=== PATIENT | female | born 1950 | race Two or more races ===

== ENCOUNTER 2024-10-08 08:51 | Outpatient (AMB) | payer MEDICARE, MEDICAID, SELFPAY ==
--- NOTE | 2024-10-08 09:04 | PD.ORTHCLVIS ---
Vital signs 10/08/24 09:08 Height 1.55 m Height Method Stated Weight 56.869 kg Weight Measurement Method Standing Scale BMI 23.6 BP 118/75 Blood Pressure Source Automatic Cuff Blood Pressure Location Right Upper Arm Position Sitting Respiration 18 Pulse 57 L Pulse Source Monitor Temp Source Temporal Artery Scan Pulse Oximetry (%) 98 Oxygen Delivery Method Room Air Med/Allergies Allergies & Medications Allergies No Known Allergies Allergy (Verified 10/08/24 09:10) Medication Reconciliation tramadol 50 mg tablet 50 mg PO QDAY 10/08/24 [History Confirmed 10/08/24] Subjective Visit Visit for: follow up visit Immunization / Flu Flu Vaccine in the Last 12 Months: Yes Date of most recent flu vaccination: 09/22/24 Flu Vaccine Exclusion Criteria: Already Received History of Present Illness Chief complaint: FOLLOW UP KNEE PAIN Natividad is a 73-year-old female with right knee pain that has been bothering her for quite a while. She is previously had a cortisone injections with me. The pain is affecting her quality life and happiness. She has severe arthritis on x-ray Personal History Red flag PMH: smoker Pain Pain level (0-10): 6 Pain duration: ALL DAY Pain location: inside (medial), outside (lateral), anterior and posterior Pain quality: shocking and other (specify) (SWELLING) Pain timing: night Associated signs & symptoms: weakness Ambulatory data Ambulatory device: none Treatments Improvement with previous injections: No Improvement with PT: No Improvement with NSAIDS: n/a Review of Systems Review of Systems: All systems negative unless otherwise noted in HPI. Exam Exam Patient is in no acute distress and is cooperative with the examination today. Breathing is nonlabored. Patient has a normal mood and affect. Bilateral extremities were evaluated and demonstrates sensation intact to light touch. Palpable pedal pulses are present. No significant edema is present. Bilateral hips were examined. The patient has no pain with log roll of the hips. Internal rotation to 30 degrees and external rotation to 30 degrees is painless. Negative FADIR. Left knee was examined today. The left knee is in reasonable alignment. Range of motion from 0-120 degrees. Knee is stable to varus and valgus as well as AP translation with <5mm. Patient has a negative McMurrays. There is no pain with patellofemoral compression and no crepitus noted. The knee is nontender to palpation. The right knee was also examined. The right knee is in [varus] alignment. Range of motion from [0-115] degrees. Knee is stable to varus and valgus as well as AP translation with <5mm. Patient has a [negative] McMurrays. There is [no] pain with patellofemoral compression and [no] crepitus noted. The knee is [tender] to palpation [medially]. Assessment and Plan Problem List (1) Arthritis of knee, right: Status: Acute Plan: Patient is a 74-year-old female with right knee pain and right knee arthritis. We discussed nonoperative and operative options. She would like a hyaluronic acid injection of the right knee. She is try gel injections. We will see her back after we get approval from her insurance. Advanced Care Planning Discussion Advance care planning discussed with:: patient Office Procedures GNS Level of Care Nursing/Assessment Patient Status: Established Patient Nursing Assessment/Reassesment: Medication Reconciliation, Update PMH in EMR and Vital Signs Coordination of Care: Complex Care and Chronic Disease 1-5, Education Complex Pt/Fam, Consent,records obtained, informed consent, Results/Orders obtained and Staff clarify orders Established Patient Charge Established Patient Point Assignment: 95 Established Patient Point Charge: EP Level 3 (80-115) Past Medical History Past Medical History Have you ever been diagnosed with any of the following: Cardiology Problems Hypertension: Yes Respiratory Problems Smoking: Yes Smoking Cessation Counseling: Yes Smoking Exposure: Yes Endocrine Problems Diabetes Mellitus Type 2: Yes
[2024-10-08 09:08] VITALS: BP 118/75; PULSE 57; RESP 18; O2SAT 98; BMI 23.6
== END 2024-10-08 09:54 | disposition home or self-care (01) ==
PROVIDERS: Supervising Provider Orthopaedic Surgery Adult Reconstructive Orthopaedic Surgery; Visit Provider Orthopaedic Surgery Adult Reconstructive Orthopaedic Surgery
DX: M17.11 Unilateral primary osteoarthritis, right knee (principal); M25.561 Pain in right knee; I10 Essential (primary) hypertension; E11.9 Type 2 diabetes mellitus without complications
CPT/HCPCS: 99213; G0463

== ENCOUNTER 2024-10-25 08:07 | Outpatient (AMB) | payer MEDICARE, MEDICAID, SELFPAY ==
[2024-10-25 08:17] VITALS: BP 123/72; PULSE 57; RESP 19; TEMP 35.8; O2SAT 100; BMI 23.6
--- NOTE | 2024-10-25 08:17 | ORTHONT_ITS ---
Vital signs 10/25/24 08:17 Height 1.55 m Height Method Stated Weight 56.897 kg Weight Measurement Method Standing Scale BMI 23.6 BP 123/72 Blood Pressure Source Automatic Cuff Blood Pressure Location Left Upper Arm Position Sitting Respiration 19 Pulse 57 L Pulse Source Monitor Temp 96.5 F L Temp Source Temporal Artery Scan Pulse Oximetry (%) 100 Oxygen Delivery Method Room Air Med/Allergies Allergies & Medications Allergies No Known Allergies Allergy (Verified 10/25/24 08:17) Medication Reconciliation tramadol 50 mg tablet 50 mg PO QDAY 10/08/24 [History Confirmed 10/25/24] hylan g-f 20 48 mg/6 mL intra-articular syringe ([email or web address]) 16 mg (2 mL) intra-articular QWEEK #6 mL 10/25/24 [Rx] Exam Exam Patient is in no acute distress and is cooperative with the examination today. Breathing is nonlabored. Patient has a normal mood and affect. Bilateral extremities were evaluated and demonstrates sensation intact to light touch. Palpable pedal pulses are present. No significant edema is present. Bilateral hips were examined. The patient has no pain with log roll of the hips. Internal rotation to 30 degrees and external rotation to 30 degrees is painless. Negative FADIR. Left knee was examined today. The left knee is in reasonable alignment. Range of motion from 0-120 degrees. Knee is stable to varus and valgus as well as AP translation with <5mm. Patient has a negative McMurrays. There is no pain with patellofemoral compression and no crepitus noted. The knee is nontender to palpation. The right knee was also examined. The right knee is in [varus] alignment. Range of motion from [0-115] degrees. Knee is stable to varus and valgus as well as AP translation with <5mm. Patient has a [negative] McMurrays. There is [no] pain with patellofemoral compression and [no] crepitus noted. The knee is [tender] to palpation [medially]. X-rays from [place] [facility] were reviewed. This demonstrates severe valgus arthritis Assessment and Plan Problem List (1) Arthritis of knee, right: Status: Acute Plan: Patient is a 74-year-old female with right knee pain and right knee arthritis. We discussed nonoperative and operative options. She would like a hyaluronic acid injection of the right knee. We discussed the risk of infection with a chronic injection. An 18-gauge syringe was used and the entire syringe of hyaluronic acid Synvisc 1 was injected into the knee after an alcohol prep. The patient tolerated this well. Advanced Care Planning Discussion Advance care planning discussed with:: patient Office Procedures GNS Level of Care Nursing/Assessment Patient Status: Established Patient Nursing Assessment/Reassesment: Medication Reconciliation, Update PMH in EMR and Vital Signs Coordination of Care: Complex Care and Chronic Disease 1-5, Education Complex Pt/Fam, Consent,records obtained, informed consent, Results/Orders obtained and Staff clarify orders Established Patient Charge Established Patient Point Assignment: 95 Established Patient Point Charge: EP Level 3 (80-115) Surgical Proc/IM SQ injection Major Surgical Procedure: Yes (KNEE INJECTION) Medication Given Medication Given Medication Given: Yes Documented Dose Given: 6 Route: Infiitration Office Meds Hyalgan 10 mg/mL intra-articular syringe Performing Provider: Tito Strickland MD Performing Location: [facility] Administered by: Tito Strickland MD on 10/25/24 08:47 Dose Route Admin Location Dispensed Lot Number Expiration Date [facility] Shuttle Driver 20 mg Infiltration 2 mL [id number] 03/28/27 [address]-1 [place] Intake Visit Data Collection New Patient or Established: Established Patient (seen at [facility] within 3 years) Reason for Visit:: 2 week follow up Seen by Clinical Staff ONLY (RN/MA): No Proof Passer Required: No PCP or OBGYN visit in last 3 months: Yes Hx Now: No Do You Feel Safe at Home: Yes Authorities Contacted: N/A Questionairres Past Medical History Past Medical History Have you ever been diagnosed with any of the following: Cardiology Problems Hypertension: Yes Respiratory Problems Smoking: Yes Smoking Cessation Counseling: Yes Smoking Exposure: Yes Endocrine Problems Diabetes Mellitus Type 2: Yes Subjective Visit Visit for: follow up visit and knee Immunization / Flu Flu Vaccine in the Last 12 Months: Yes Flu Vaccine Exclusion Criteria: Already Received History of Present Illness Chief complaint: Right knee pain Natividad is a 74-year-old female with right knee pain and right knee arthritis. She is tried conservative treatment and did well with a cortisone injection. She would like a hyaluronic acid injection today. Pain Pain level (0-10): 6 Pain duration: constant Pain location: inside (medial) and outside (lateral) Pain quality: sharp, aching and other (specify) (swelling) Pain timing: increases with activity Associated signs & symptoms: weakness Ambulatory data Ambulatory device: none Treatments Improvement with previous injections: No Improvement with PT: No Improvement with NSAIDS: no Review of Systems Review of Systems: All systems negative unless otherwise noted in HPI.
== END 2024-10-25 08:56 | disposition home or self-care (01) ==
PROVIDERS: Supervising Provider Orthopaedic Surgery Adult Reconstructive Orthopaedic Surgery; Visit Provider Orthopaedic Surgery Adult Reconstructive Orthopaedic Surgery
DX: M17.11 Unilateral primary osteoarthritis, right knee (principal); M25.561 Pain in right knee; I10 Essential (primary) hypertension
CPT/HCPCS: 20610; 99213; G0463; J7325

== ENCOUNTER 2024-12-12 09:37 | Outpatient (AMB) | payer MEDICARE, MEDICAID, SELFPAY ==
[2024-12-12 10:07] VITALS: BP 122/56; PULSE 55; RESP 18; TEMP 36.6; O2SAT 97; BMI 23.8
--- NOTE | 2024-12-12 10:07 | PD.ORTHCLVIS ---
Vital signs 12/12/24 10:07 Height 1.55 m Height Method Stated Weight 57.266 kg Weight Measurement Method Standing Scale BMI 23.8 BP 122/56 L Blood Pressure Source Automatic Cuff Blood Pressure Location Right Upper Arm Position Sitting Respiration 18 Pulse 55 L Pulse Source Monitor Temp 97.8 F Temp Source Temporal Artery Scan Pulse Oximetry (%) 97 Oxygen Delivery Method Room Air Med/Allergies Allergies & Medications Allergies No Known Allergies Allergy (Verified 10/25/24 08:17) Medication Reconciliation tramadol 50 mg tablet 50 mg PO QDAY 10/08/24 [History Confirmed 12/12/24] hylan g-f 20 48 mg/6 mL intra-articular syringe ([employer]) 16 mg (2 mL) intra-articular QWEEK #6 mL 10/25/24 [Rx Confirmed 12/12/24] Exam Exam Patient is in no acute distress and is cooperative with the examination today. Breathing is nonlabored. Patient has a normal mood and affect. Bilateral extremities were evaluated and demonstrates sensation intact to light touch. Palpable pedal pulses are present. No significant edema is present. Bilateral hips were examined. The patient has no pain with log roll of the hips. Internal rotation to 30 degrees and external rotation to 30 degrees is painless. Negative FADIR. Left knee was examined today. The left knee is in reasonable alignment. Range of motion from 0-120 degrees. Knee is stable to varus and valgus as well as AP translation with <5mm. Patient has a negative McMurrays. There is no pain with patellofemoral compression and no crepitus noted. The knee is nontender to palpation. The right knee was also examined. The right knee is in [varus] alignment. Range of motion from [0-115] degrees. Knee is stable to varus and valgus as well as AP translation with <5mm. Patient has a [negative] McMurrays. There is [no] pain with patellofemoral compression and [no] crepitus noted. The knee is [tender] to palpation [medially]. X-rays from [place] [facility] were reviewed. This demonstrates severe valgus arthritis Assessment and Plan Problem List (1) Arthritis of knee, right: Status: Acute Plan: Patient is a 74-year-old female with right knee pain and right knee arthritis. We discussed nonoperative and operative options. She has not had a right knee cortisone injection for over 3 months otherwise once a day Recommend knee cortisone injection as patient would like to proceed with conservative treatment at this time. The risks and benefits of the procedure were reviewed with the patient and patient gave verbal consent to continue with the procedure. Procedure: performed by Dr. Strickland Using sterile technique the Right knee was thoroughly prepped with alcohol, and approximately 1 cc of Kenalog 40 mg/mL and 4 cc of 1% lidocaine was injected without resistance into the medial tibial femoral joint space. The patient tolerated the procedure. Advanced Care Planning Discussion Advance care planning discussed with:: patient Office Procedures GNS Level of Care Nursing/Assessment Patient Status: Established Patient Nursing Assessment/Reassesment: Medication Reconciliation, Update PMH in EMR and Vital Signs Coordination of Care: Complex Care and Chronic Disease 1-5, Education Complex Pt/Fam, Consent,records obtained, informed consent, Results/Orders obtained and Staff clarify orders Special Needs: Language special needs Established Patient Charge Established Patient Point Assignment: 95 Established Patient Point Charge: EP Level 3 (80-115) Surgical Proc/IM SQ injection Major Surgical Procedure: Yes (KNEE INJECTION ) Medication Given Medication Given Medication Given: Yes Documented Dose Given: 4 Route: Infiitration Medication Given Medication Given Medication Given: Yes Documented Dose Given: 1 Route: Infiitration Office Meds Xylocaine 10 mg/mL (1 %) injection solution Performing Provider: Tito Strickland MD Performing Location: [facility] Administered by: Tito Strickland MD on 12/12/24 15:55 Dose Route Admin Location Dispensed Lot Number Expiration Date [facility] Education Assistant 20 mL Infiltration 20 mL [id number] [facility] triamcinolone acetonide 40 mg/mL suspension for injection Performing Provider: Tito Strickland MD Performing Location: [facility] Administered by: Tito Strickland MD on 12/12/24 15:55 Dose Route Admin Location Dispensed Lot Number Expiration Date [facility] Education Assistant 40 mg intra-articular RIGHT KNEE 1 mL [id number] 02/27/26 4887-6287-10 [employer]EV[employer] PARENTER[employer] [place] Intake Visit Data Collection New Patient or Established: Established Patient (seen at [facility] within 3 years) Reason for Visit:: F/U GEL INJECTIONS Seen by Clinical Staff ONLY (RN/MA): No Verbal consent obtained for Telemed visit?: No Client Services Vice President Required: Yes PCP or OBGYN visit in last 3 months: Yes Hx Now: No Do You Feel Safe at Home: Yes Authorities Contacted: N/A Questionairres Past Medical History Past Medical History Have you ever been diagnosed with any of the following: Cardiology Problems Hypertension: Yes Respiratory Problems Smoking: Yes Smoking Cessation Counseling: Yes Smoking Exposure: Yes Endocrine Problems Diabetes Mellitus Type 2: Yes Subjective Visit Visit for: follow up visit and knee Immunization / Flu Flu Vaccine in the Last 12 Months: No Flu Vaccine Exclusion Criteria: No Exclusion Criteria History of Present Illness Chief complaint: F/U GEL INJECTION Natividad is a 74-year-old female with right knee pain and right knee arthritis. She is tried conservative treatment and did well with a cortisone injection. She did not do well with the last hyaluronic acid injection and wants cortisone this time Pain Pain level (0-10): 5 Pain duration: GEL INJECTION Pain location: inside (medial), outside (lateral), anterior and posterior Pain quality: sharp, dull and aching Pain timing: increases with activity Associated signs & symptoms: weakness and stiffness Ambulatory data Ambulatory device: none Treatments Improvement with previous injections: Yes Improvement with PT: No Improvement with NSAIDS: no Review of Systems Review of Systems: All systems negative unless otherwise noted in HPI.
== END 2024-12-12 10:25 | disposition home or self-care (01) ==
PROVIDERS: Supervising Provider Orthopaedic Surgery Adult Reconstructive Orthopaedic Surgery; Visit Provider Orthopaedic Surgery Adult Reconstructive Orthopaedic Surgery
DX: M17.11 Unilateral primary osteoarthritis, right knee (principal); M25.561 Pain in right knee; I10 Essential (primary) hypertension
CPT/HCPCS: 20610; 99213; J3301; J3490; G0463

== ENCOUNTER 2025-01-23 07:49 | Outpatient (AMB) | payer MEDICARE, MEDICAID, SELFPAY ==
[2025-01-23 08:02] VITALS: BP 116/74; PULSE 56; RESP 18; TEMP 36.3; O2SAT 99; BMI 23.8
--- NOTE | 2025-01-23 08:02 | PD.ORTHCLVIS ---
Vital signs 01/23/25 08:02 Height 1.55 m Height Method Measured Weight 57.238 kg Weight Measurement Method Standing Scale BMI 23.8 BP 116/74 Blood Pressure Source Automatic Cuff Blood Pressure Location Right Upper Arm Position Sitting Respiration 18 Pulse 56 L Pulse Source Monitor Temp 97.3 F Temp Source Temporal Artery Scan Pulse Oximetry (%) 99 Oxygen Delivery Method Room Air Med/Allergies Allergies & Medications Allergies No Known Allergies Allergy (Verified 01/23/25 08:03) Medication Reconciliation tramadol 50 mg tablet 50 mg PO QDAY 10/08/24 [History Confirmed 01/23/25] Exam Exam Patient is in no acute distress and is cooperative with the examination today. Breathing is nonlabored. Patient has a normal mood and affect. Bilateral extremities were evaluated and demonstrates sensation intact to light touch. Palpable pedal pulses are present. No significant edema is present. Bilateral hips were examined. The patient has no pain with log roll of the hips. Internal rotation to 30 degrees and external rotation to 30 degrees is painless. Negative FADIR. Left knee was examined today. The left knee is in reasonable alignment. Range of motion from 0-120 degrees. Knee is stable to varus and valgus as well as AP translation with <5mm. Patient has a negative McMurrays. There is no pain with patellofemoral compression and no crepitus noted. The knee is nontender to palpation. The right knee was also examined. The right knee is in [varus] alignment. Range of motion from [0-115] degrees. Knee is stable to varus and valgus as well as AP translation with <5mm. Patient has a [negative] McMurrays. There is [no] pain with patellofemoral compression and [no] crepitus noted. The knee is [tender] to palpation [medially]. X-rays from [place] [facility] were reviewed. This demonstrates severe valgus arthritis Assessment and Plan Problem List (1) Arthritis of knee, right: Status: Acute Plan: Patient is a 74-year-old female with right knee pain and right knee arthritis. We discussed nonoperative and operative options. She has been doing well. She is here for xray results and her arthritis has really progressed Advanced Care Planning Discussion Advance care planning discussed with:: patient Office Procedures GNS Level of Care Nursing/Assessment Patient Status: Established Patient Nursing Assessment/Reassesment: Medication Reconciliation, Update PMH in EMR and Vital Signs Coordination of Care: Complex Care/Chronic Disease 5 or more, Education Complex Pt/Fam, Consent,records obtained, informed consent, Results/Orders obtained and Staff clarify orders Established Patient Charge Established Patient Point Assignment: 105 Established Patient Point Charge: EP Level 3 (80-115) MA Intake Visit Data Collection New Patient or Established: Established Patient (seen at [facility] within 3 years) Reason for Visit:: FOLLOW UP KNEE-GEL INJECTION/X RAY RESULTS Forest Botany Instructor Required: Yes Forest Botany Instructor's name/title: JAY ESCOBEDO Do You Feel Safe at Home: Yes Questionairres Past Medical History Past Medical History Have you ever been diagnosed with any of the following: Cardiology Problems Hypertension: Yes Respiratory Problems Smoking: Yes Smoking Cessation Counseling: Yes Smoking Exposure: Yes Endocrine Problems Diabetes Mellitus Type 2: Yes Subjective Visit Visit for: follow up visit, knee and x-rays Immunization / Flu Flu Vaccine in the Last 12 Months: Yes Flu Vaccine Exclusion Criteria: Already Received History of Present Illness Chief complaint: FOLLOW UP KNEE GEL INJECTION/X-RAY RESULTS Natividad is a 74-year-old female with right knee pain and right knee arthritis. She is tried conservative treatment and did well with a cortisone injection. We obtained new xrays and it is now bone and bone Personal History Red flag PMH: none Pain Pain level (0-10): 0 Pain duration: GEL INJECTION Pain location: inside (medial), outside (lateral), anterior and posterior Pain quality: sharp, dull and aching Pain timing: increases with activity Associated signs & symptoms: none Ambulatory data Ambulatory device: none Treatments Improvement with previous injections: Yes Improvement with PT: No Improvement with NSAIDS: no Review of Systems Review of Systems: All systems negative unless otherwise noted in HPI.
== END 2025-01-23 08:16 | disposition home or self-care (01) ==
LOC: HODSRG 07:49
PROVIDERS: Supervising Provider Orthopaedic Surgery Adult Reconstructive Orthopaedic Surgery; Visit Provider Orthopaedic Surgery Adult Reconstructive Orthopaedic Surgery
DX: M17.11 Unilateral primary osteoarthritis, right knee (principal); M25.561 Pain in right knee; I10 Essential (primary) hypertension; E11.9 Type 2 diabetes mellitus without complications
CPT/HCPCS: 99213; G0463

== ENCOUNTER 2025-03-14 09:19 | Outpatient (AMB) | payer MEDICARE, MEDICAID, SELFPAY ==
[2025-03-14 09:51] VITALS: BP 99/64; PULSE 58; RESP 18; TEMP 36.3; O2SAT 97; BMI 23.7
--- NOTE | 2025-03-14 09:51 | PD.ORTHCLVIS ---
Vital signs 03/14/25 09:51 Height 1.55 m Height Method Stated Weight 56.954 kg Weight Measurement Method Standing Scale BMI 23.7 BP 99/64 Blood Pressure Source Automatic Cuff Blood Pressure Location Right Upper Arm Position Sitting Respiration 18 Pulse 58 L Pulse Source Monitor Temp 97.3 F Temp Source Temporal Artery Scan Pulse Oximetry (%) 97 Oxygen Delivery Method Room Air Med/Allergies Allergies & Medications Allergies No Known Allergies Allergy (Verified 03/14/25 09:52) Medication Reconciliation tramadol 50 mg tablet 50 mg PO QDAY 10/08/24 [History Confirmed 03/14/25] Exam Exam Patient is in no acute distress and is cooperative with the examination today. Breathing is nonlabored. Patient has a normal mood and affect. Bilateral extremities were evaluated and demonstrates sensation intact to light touch. Palpable pedal pulses are present. No significant edema is present. Bilateral hips were examined. The patient has no pain with log roll of the hips. Internal rotation to 30 degrees and external rotation to 30 degrees is painless. Negative FADIR. Left knee was examined today. The left knee is in reasonable alignment. Range of motion from 0-120 degrees. Knee is stable to varus and valgus as well as AP translation with <5mm. Patient has a negative McMurrays. There is no pain with patellofemoral compression and no crepitus noted. The knee is nontender to palpation. The right knee was also examined. The right knee is in [varus] alignment. Range of motion from [0-115] degrees. Knee is stable to varus and valgus as well as AP translation with <5mm. Patient has a [negative] McMurrays. There is [no] pain with patellofemoral compression and [no] crepitus noted. The knee is [tender] to palpation [medially]. X-rays from [place] [facility] were reviewed. This demonstrates severe valgus arthritis Assessment and Plan Problem List (1) Arthritis of knee, right: Status: Acute Plan: Patient is a 74-year-old female with right knee pain and right knee arthritis. We discussed nonoperative and operative options. She has been doing well. She is here for xray results and her arthritis has really progressed Advanced Care Planning Discussion Advance care planning discussed with:: patient Office Procedures GNS Level of Care Nursing/Assessment Patient Status: Established Patient Nursing Assessment/Reassesment: Medication Reconciliation, Update PMH in EMR and Vital Signs Coordination of Care: Complex Care and Chronic Disease 1-5, Education Complex Pt/Fam, Consent,records obtained, informed consent, Results/Orders obtained and Staff clarify orders Special Needs: Language special needs Established Patient Charge Established Patient Point Assignment: 95 Established Patient Point Charge: EP Level 3 (80-115) MA Intake Visit Data Collection New Patient or Established: Established Patient (seen at [facility] within 3 years) Reason for Visit:: F/U GEL INJECTIONS Seen by Clinical Staff ONLY (RN/MA): No Verbal consent obtained for Telemed visit?: No Mate Chief Required: Yes PCP or OBGYN visit in last 3 months: Yes Hx Now: No Do You Feel Safe at Home: Yes Authorities Contacted: N/A Questionairres Past Medical History Past Medical History Have you ever been diagnosed with any of the following: Cardiology Problems Hypertension: Yes Respiratory Problems Smoking: Yes Smoking Cessation Counseling: Yes Smoking Exposure: Yes Endocrine Problems Diabetes Mellitus Type 2: Yes Subjective Visit Visit for: follow up visit, knee and injections Immunization / Flu Flu Vaccine in the Last 12 Months: No Flu Vaccine Exclusion Criteria: No Exclusion Criteria History of Present Illness Chief complaint: F/U GEL INJECTION Natividad is a 74-year-old female with right knee pain and right knee arthritis. She is tried conservative treatment and did well with a cortisone injection. She is doing well with conservative treatment. They are going on a trip to [place] in early May and would like an injection right before then. Right now the pain is still doing well Personal History Occupation: RETIRED Red flag PMH: BMI BMI Counceling provided: Yes Pain Pain level (0-10): 0 Pain duration: GEL INJECTION Pain location: inside (medial), outside (lateral), anterior and posterior Pain quality: sharp, dull and aching Pain timing: increases with activity Associated signs & symptoms: none Ambulatory data Ambulatory device: none Treatments Improvement with previous injections: No Improvement with PT: No Improvement with NSAIDS: no Review of Systems Review of Systems: All systems negative unless otherwise noted in HPI.
== END 2025-03-14 10:15 | disposition home or self-care (01) ==
PROVIDERS: Supervising Provider Orthopaedic Surgery Adult Reconstructive Orthopaedic Surgery; Visit Provider Orthopaedic Surgery Adult Reconstructive Orthopaedic Surgery
DX: M17.11 Unilateral primary osteoarthritis, right knee (principal); M25.561 Pain in right knee; I10 Essential (primary) hypertension; E11.9 Type 2 diabetes mellitus without complications
CPT/HCPCS: 99213; G0463

== ENCOUNTER 2025-05-15 08:40 | Outpatient (AMB) | payer MEDICARE, MEDICAID, SELFPAY ==
[2025-05-15 09:04] VITALS: BP 115/69; PULSE 59; RESP 19; TEMP 36.1; O2SAT 97; BMI 23.8
--- NOTE | 2025-05-15 09:04 | ORTHONT_ITS ---
Vital signs 05/15/25 09:04 Height 1.55 m Height Method Stated Weight 57.181 kg Weight Measurement Method Standing Scale BMI 23.8 BP 115/69 Blood Pressure Source Automatic Cuff Blood Pressure Location Left Upper Arm Position Sitting Respiration 19 Pulse 59 L Pulse Source Monitor Temp 97.0 F Temp Source Temporal Artery Scan Pulse Oximetry (%) 97 Oxygen Delivery Method Room Air Med/Allergies Allergies & Medications Allergies No Known Allergies Allergy (Verified 05/15/25 09:04) Medication Reconciliation tramadol 50 mg tablet 50 mg PO QDAY 10/08/24 [History Confirmed 05/15/25] Exam Exam Patient is in no acute distress and is cooperative with the examination today. Breathing is nonlabored. Patient has a normal mood and affect. Bilateral extremities were evaluated and demonstrates sensation intact to light touch. Palpable pedal pulses are present. No significant edema is present. Bilateral hips were examined. The patient has no pain with log roll of the hips. Internal rotation to 30 degrees and external rotation to 30 degrees is painless. Negative FADIR. Left knee was examined today. The left knee is in reasonable alignment. Range of motion from 0-120 degrees. Knee is stable to varus and valgus as well as AP translation with <5mm. Patient has a negative McMurrays. There is no pain with patellofemoral compression and no crepitus noted. The knee is nontender to palpation. The right knee was also examined. The right knee is in [varus] alignment. Range of motion from [0-115] degrees. Knee is stable to varus and valgus as well as AP translation with <5mm. Patient has a [negative] McMurrays. There is [no] pain with patellofemoral compression and [no] crepitus noted. The knee is [tender] to palpation [medially]. X-rays from [place] [facility] were reviewed. This demonstrates severe valgus arthritis Assessment and Plan Problem List (1) Arthritis of knee, right: Status: Acute Plan: Patient is a 74-year-old female with right knee pain and right knee arthritis. Recommend knee cortisone injection as patient would like to proceed with conservative treatment at this time. The risks and benefits of the procedure were reviewed with the patient and patient gave verbal consent to continue with the procedure. Procedure: performed by Dr. Strickland Using sterile technique the Right knee was thoroughly prepped with alcohol, and approximately 1 cc of Kenalog 40 mg/mL and 4 cc of 1% lidocaine was injected without resistance into the medial tibial femoral joint space. The patient tolerated the procedure. Advanced Care Planning Discussion Advance care planning discussed with:: patient Office Procedures GNS Level of Care Nursing/Assessment Patient Status: Established Patient Nursing Assessment/Reassesment: Medication Reconciliation, Update PMH in EMR and Vital Signs Coordination of Care: Complex Care and Chronic Disease 1-5, Education Complex Pt/Fam, Consent,records obtained, informed consent, Results/Orders obtained and Staff clarify orders Established Patient Charge Established Patient Point Assignment: 95 Established Patient Point Charge: EP Level 3 (80-115) Surgical Proc/IM SQ injection Major Surgical Procedure: Yes (KNEE INJECTION) Medication Given Medication Given Medication Given: Yes Documented Dose Given: 4 Route: Infiitration Medication Given Medication Given Medication Given: Yes Documented Dose Given: 1 Route: Infiitration Office Meds Xylocaine 10 mg/mL (1 %) injection solution Performing Provider: Tito Strickland MD Performing Location: [facility] Administered by: Tito Strickland MD on 05/15/25 09:16 Dose Route Admin Location Dispensed Lot Number Expiration Date [facility] Lead Caregiver 20 mL Infiltration 20 mL [id number] 07/29/28 60727-479-09 [facility] triamcinolone acetonide 40 mg/mL suspension for injection Performing Provider: Tito Strickland MD Performing Location: [facility] Administered by: Tito Strickland MD on 05/15/25 09:17 Dose Route Admin Location Dispensed Lot Number Expiration Date [facility] Lead Caregiver 40 mg intra-articular KNEE 1 mL [id number] 11/28/26 22790-687-04 HORTENSIA REYES MA Intake Visit Data Collection New Patient or Established: Established Patient (seen at [facility] within 3 years) Reason for Visit:: RIGHT KNEE PAIN F/U INJ Seen by Clinical Staff ONLY (RN/MA): No PCP or OBGYN visit in last 3 months: Yes Hx Now: No Do You Feel Safe at Home: Yes Authorities Contacted: N/A Questionairres Past Medical History Past Medical History Have you ever been diagnosed with any of the following: Cardiology Problems Hypertension: Yes Respiratory Problems Smoking: Yes Smoking Cessation Counseling: Yes Smoking Exposure: Yes Endocrine Problems Diabetes Mellitus Type 2: Yes Subjective Visit Visit for: follow up visit, knee and injections Immunization / Flu Flu Vaccine in the Last 12 Months: No Flu Vaccine Exclusion Criteria: No Exclusion Criteria History of Present Illness Chief complaint: F/U INJECTION Natividad is a 74-year-old female with right knee pain and right knee arthritis. She is tried conservative treatment and did well with a cortisone injection. She is doing well with conservative treatment. She is going on a trip and like injections today as the pain has returned. She reports the cortisone injections have helped more than the hyaluronic acid injections and would like 1 today Personal History Occupation: RETIRED Red flag PMH: BMI BMI Counceling provided: Yes Pain Pain level (0-10): 4 Pain duration: GEL INJECTION Pain location: inside (medial), outside (lateral) and anterior Pain quality: sharp, dull and aching Pain timing: increases with activity Associated signs & symptoms: none Ambulatory data Ambulatory device: none Treatments Improvement with previous injections: No Improvement with PT: No Improvement with NSAIDS: no Review of Systems Review of Systems: All systems negative unless otherwise noted in HPI.
== END 2025-05-15 09:15 | disposition home or self-care (01) ==
LOC: HODSRG 08:40
PROVIDERS: Supervising Provider Orthopaedic Surgery Adult Reconstructive Orthopaedic Surgery; Visit Provider Orthopaedic Surgery Adult Reconstructive Orthopaedic Surgery
DX: M17.11 Unilateral primary osteoarthritis, right knee (principal); M25.561 Pain in right knee
CPT/HCPCS: 20610; 99213; J3301; J3490; G0463

== ENCOUNTER 2025-08-28 10:35 | Outpatient (AMB) | payer MEDICARE, MEDICAID, SELFPAY ==
--- NOTE | 2025-08-28 11:01 | PD.ORTHCLVIS ---
Vital signs 08/28/25 11:02 Height 1.55 m Height Method Stated Weight 56.331 kg Weight Measurement Method Standing Scale BMI 23.4 BP 137/76 H Blood Pressure Source Automatic Cuff Blood Pressure Location Left Upper Arm Position Sitting Respiration 18 Pulse 50 L Pulse Source Monitor Temp 97.1 F Temp Source Temporal Artery Scan Pulse Oximetry (%) 98 Oxygen Delivery Method Room Air Med/Allergies Allergies & Medications Allergies No Known Allergies Allergy (Verified 08/28/25 11:05) Medication Reconciliation tramadol 50 mg tablet 50 mg PO QDAY 10/08/24 [History Confirmed 08/28/25] Exam Exam Patient is in no acute distress and is cooperative with the examination today. Breathing is nonlabored. Patient has a normal mood and affect. Bilateral extremities were evaluated and demonstrates sensation intact to light touch. Palpable pedal pulses are present. No significant edema is present. Bilateral hips were examined. The patient has no pain with log roll of the hips. Internal rotation to 30 degrees and external rotation to 30 degrees is painless. Negative FADIR. Left knee was examined today. The left knee is in reasonable alignment. Range of motion from 0-120 degrees. Knee is stable to varus and valgus as well as AP translation with <5mm. Patient has a negative McMurrays. There is no pain with patellofemoral compression and no crepitus noted. The knee is nontender to palpation. The right knee was also examined. The right knee is in [varus] alignment. Range of motion from [0-115] degrees. Knee is stable to varus and valgus as well as AP translation with <5mm. Patient has a [negative] McMurrays. There is [no] pain with patellofemoral compression and [no] crepitus noted. The knee is [tender] to palpation [medially]. X-rays from [place] [facility] were reviewed. This demonstrates severe valgus arthritis Assessment and Plan Problem List (1) Arthritis of knee, right: Status: Acute Plan: Patient is a 74-year-old female with right knee pain and right knee arthritis. Recommend knee cortisone injection as patient would like to proceed with conservative treatment at this time. The risks and benefits of the procedure were reviewed with the patient and patient gave verbal consent to continue with the procedure. Procedure: performed by Dr. Strickland Using sterile technique the Right knee was thoroughly prepped with alcohol, and approximately 1 cc of Depo-Medrol 80mg/mL and 4 cc of 0.2% ropivacaine was injected without resistance into the medial tibial femoral joint space. The patient tolerated the procedure. Advanced Care Planning Discussion Advance care planning discussed with:: patient Office Procedures GNS Level of Care Nursing/Assessment Patient Status: Established Patient Nursing Assessment/Reassesment: Medication Reconciliation, Update PMH in EMR and Vital Signs Coordination of Care: Complex Care and Chronic Disease 1-5, Education Complex Pt/Fam, Consent,records obtained, informed consent, Results/Orders obtained and Staff clarify orders Established Patient Charge Established Patient Point Assignment: 95 Established Patient Point Charge: EP Level 3 (80-115) Surgical Proc/IM SQ injection Minor Surgical Procedure: Yes (KNEE INJECTION) MA Intake Visit Data Collection New Patient or Established: Established Patient (seen at [facility] within 3 years) Reason for Visit:: RIGHT KNEE PAIN F/U INJ Seen by Clinical Staff ONLY (RN/MA): No PCP or OBGYN visit in last 3 months: Yes Hx Now: No Do You Feel Safe at Home: Yes Authorities Contacted: N/A Questionairres Past Medical History Past Medical History Have you ever been diagnosed with any of the following: Cardiology Problems Hypertension: Yes Respiratory Problems Smoking: Yes Smoking Cessation Counseling: Yes Smoking Exposure: Yes Endocrine Problems Diabetes Mellitus Type 2: Yes Subjective Visit Visit for: follow up visit, knee and injections Immunization / Flu Flu Vaccine in the Last 12 Months: No Flu Vaccine Exclusion Criteria: No Exclusion Criteria History of Present Illness Chief complaint: F/U INJECTION Natividad is a 74-year-old female with right knee pain and right knee arthritis. She is tried conservative treatment and did well with a cortisone injection. She is doing well with conservative treatment. She is going on a trip and like injections today as the pain has returned. She reports the cortisone injections have helped more than the hyaluronic acid injections and would another injection today Personal History Occupation: RETIRED Red flag PMH: BMI BMI Counceling provided: Yes Pain Pain level (0-10): 4 Pain duration: GEL INJECTION Pain location: inside (medial), outside (lateral) and anterior Pain quality: sharp, dull and aching Pain timing: increases with activity Associated signs & symptoms: none Ambulatory data Ambulatory device: none Treatments Improvement with previous injections: No Improvement with PT: No Improvement with NSAIDS: no Review of Systems Review of Systems: All systems negative unless otherwise noted in HPI.
[2025-08-28 11:02] VITALS: BP 137/76; PULSE 50; RESP 18; TEMP 36.2; O2SAT 98; BMI 23.4
== END 2025-08-28 11:16 | disposition home or self-care (01) ==
LOC: HODSRG 10:35
PROVIDERS: Supervising Provider Orthopaedic Surgery Adult Reconstructive Orthopaedic Surgery; Visit Provider Orthopaedic Surgery Adult Reconstructive Orthopaedic Surgery
DX: M25.561 Pain in right knee (principal); M17.11 Unilateral primary osteoarthritis, right knee; I10 Essential (primary) hypertension
CPT/HCPCS: 20610; 99213; J1010; J2795; G0463